=== PATIENT | male | born 1980 | race Caucasian/White ===

== ENCOUNTER 2024-01-18 13:41 | Emergency (ER) | payer MEDICARE, OTHER, SELFPAY ==
[2024-01-18] VITALS (22 sets, daily range): BP systolic 101–125; BP diastolic 65–88
[2024-01-18 14:11] LABS: % Basophils 0.6 % (0-2); % Eosinophils 3.4 % (0-6); % Immature Granulocytes 0.6 % (0-0.5); % Lymphocytes 25.2 % (20.5-51.1); % Monocytes 9.7 % (1.7-9.3); % Neutrophils 60.5 % (42.2-75.2); Absolute Basophils 0.1 10^3/uL (0-0.2); Absolute Eosinophils 0.3 10^3/uL (0-0.7); Absolute Immature Granulocytes 0.1 10^3/uL (0-0.05); Absolute Lymphocytes 2.1 10^3/uL (1.2-3.4); Absolute Monocytes 0.8 10^3/uL (0.1-0.6); Hematocrit 41.6 % (39.0-52.0); Hemoglobin 13.9 g/dL (13.0-18.0); Mean Corp Hgb Conc. 33.4 g/dL (33.0-37.0); Mean Corpuscular Hgb 31.1 pg (27.0-31.0); Mean Corpuscular Volume 93.1 fL (80.0-94.0); Mean Platelet Volume 11.9 fL (7.4-10.4); Nucleated Red Blood Cells % 0 % (-); Platelet Count 143 10^3/uL (130-400); Red Blood Cell Count 4.47 10^6/uL (4.70-6.10); Red Cell Dist. Width 13.4 % (11.5-14.5); White Blood Cell Count 8.3 10^3/uL (4.8-10.8)
[2024-01-18 14:36] LABS: Troponin I < 0.012 ng/ml
[2024-01-18 15:07] LABS: ALT (SGPT) 11 U/L (0-50); AST (SGOT) 14 U/L (17-59); Albumin 4.4 g/dl (3.5-5.0); Alkaline Phosphatase 49 U/L (38-126); Blood Urea Nitrogen 18 mg/dl (9-20); Carbon Dioxide 27 mmol/L (22-30); Chloride 107 mmol/L (98-107); Glucose 96 mg/dl (70-99); Potassium 4.7 mmol/L (3.5-5.1); Sodium 141 mmol/L (135-145); Total Bilirubin 0.4 mg/dl (0.2-1.3); Total Protein 6.6 g/dl (6.3-8.2); eGFR > 60.00
--- NOTE | 2024-01-18 16:05 | ED.GENMED ---
History of Present Illness
General
Chief Complaint: Heart Rate Problem
Time Seen by Provider: 01/18/24 15:37
History of Present Illness
History of Present Illness:
43-year-old male with history of mechanical aortic valve on Coumadin from endocarditis presenting to the emergency department for concern of atrial flutter. 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 Rodriguez. Patient was seen cardiology for routine
follow-up, found to be in a flutter and sent for cardioversion. Patient without acute complaints, denies chest pain, difficulty breathing, dizziness, lightheadedness, fever. Notes compliance with his medications. Per truck trailer final inspector, therapeutic on
Coumadin. Patient sent in for cardioversion. No additional complaints at this time
Past History
Past History
ED Past Medical History: CHF, Seizures, Valvular disease, Other and Other
ED Past Surgical History: Brain, Cardiac and Orthopedic
Social History
Tobacco: Smoker
Alcohol: None
Drug: Former user and IVDA
Personal: Single
Living: with family
Employment: Disabled
Family History
Family History: CAD
Phy Exam
Physical Exam
Physical Exam:
GENERAL: Alert , in no apparent distress
EYE: pupils equal and reactive
NECK: Supple, no significant adenopathy.
ENT: o/p clr, mmm.
CARDIAC: Tachycardic
LUNGS: Clear breath sounds bilaterally, no acute respiratory distress, no wheezes/rales/rhonchi
ABDOMEN: Soft, without focal tenderness, no r/g, no cvat
NEUROLOGICAL: Alert and oriented, no focal neuro deficits
SKIN: Warm and dry, skin intact.
MUSCULOSKELETAL: No edema, well perfused.
PSYCH: Normal and appropriate interaction.
Course
Orders/Labs/Results
Orders:
Orders
01/18/24 13:54
Electrocardiogram (*1) Urgent
Reason for Study: Chest Pain
EKG- Treatment ONCE
01/18/24 14:02
Complete Blood Count/With Diff Urgent
Comprehensive Metabolic Panel Urgent
Troponin I Urgent
01/18/24 15:53
Electrocardiogram (*1) Urgent
Reason for Study: Tachycardia
EKG- Treatment ONCE
01/18/24 16:51
Prothrombin Time Urgent
01/18/24 17:51
Propofol [Diprivan] 20 ml .ROUTE .STK-MED
01/18/24 18:11
Electrocardiogram (*1) Urgent
Reason for Study: Atrial Flutter
Other Reason for Exam: post cardioversion
01/18/24 18:13
EKG- Treatment ONCE
01/18/24 18:58
Levetiracetam [Keppra] 2,000 mg PO NOW STA
01/18/24 19:27
Warfarin [Coumadin] 8 mg PO NOW STA
Abnormal Lab Results
01/18/24 01/18/24
14:02 16:51
RBC 4.47 L 10^6/uL
(4.70-6.10)
MCH 31.1 H pg
(27.0-31.0)
MPV 11.9 H fL
(7.4-10.4)
Abs Immat Gran (auto) 0.1 H 10^3/uL
(0-0.05)
Absolute Monos (auto) 0.8 H 10^3/uL
(0.1-0.6)
Immature Gran % 0.6 H %
(0-0.5)
Monocytes % 9.7 H %
(1.7-9.3)
PT 27.4 H Sec
(11.4-14.6)
AST 14 L U/L
(17-59)
01/18/24 14:02
01/18/24 14:02
Vital Signs
Initial and Last Documented VS:
Initial Vital Signs
Temp Pulse Resp BP Pulse Ox
97.4 F 126 20 114/88 98
01/18/24 13:51 01/18/24 13:51 01/18/24 13:51 01/18/24 13:51 01/18/24 13:51
Last Documented Vital Signs
Temp Pulse Resp BP Pulse Ox
98.0 F 77 18 111/73 97
01/18/24 18:46 01/18/24 19:00 01/18/24 19:00 01/18/24 19:00 01/18/24 19:00
Procedures
Moderate Sedation
ASA Risk Score: Class II
Chart and allergies reviewed: Yes
Consent for anesthesia obtained: Yes
Time out completed (validating right patient & procedure): Yes
Moderate Sedation Start Time(when first medication is given): 18:06
History of difficult intubation: No
Airway free of obstruction: Yes
Patient has a gag reflex: Yes
Patient is able to open mouth: Yes
Patient has no dentures: Yes
Patient has no loose teeth: Yes
Medication administered by Provider during Moderate Sedation: IV Propofol (mg)
Total dose administered: 100
Time drug administered: 18:06
Moderate Sedation Procedure End Time: 18:20
Cardioversion
Indication:: Other (atrial flutter)
Performed by:: Hayley Recinos DO
Synchronized?: Yes
Energy Used: 200 joules
Number of attempts: 1
Successful?: Yes
Complications: none
ASA Risk Score: Class II
Any reaction or bad outcome to prior sedation/anesthesia?: No history of a reaction
Sedation level to be attained: moderate
Chart and allergies reviewed: Yes
Patient reassessed prior to sedation: Yes
Time out completed at (validating right patient & procedure): 18:00
History of difficult intubation: No
Airway free of obstruction: Yes
Patient has a gag reflex: Yes
Patient is able to open mouth: Yes
Patient has no dentures: Yes
Patient has no loose teeth: Yes
Medication administered by Provider during Moderate Sedation: IV Propofol (mg)
Total dose administered: 100
Time drug administered: 18:06
Start Time: 18:06
Stop Time: 18:20
MDM/Problems Addressed
MDM/Problems Addressed:
43-year-old male with history of mechanical aortic valve on Coumadin presenting for concern of new onset a flutter. Vital signs significant for tachycardia.
On exam, patient well-appearing, asymptomatic. Patient sent in by cardiology for cardioversion. Did discuss with cardiology, will cardiovert in the emergency department. Pending INR. Patient is also to health monitor placed on by cardiology
prior to discharge.
18:15 -successful cardioversion to sinus rhythm. Will appropriately monitor until clinically stable for ambulation. Plan for discharge home with outpatient cardiology follow-up. Monitor has been placed on patient by cardiology.
*EKG
Interpreted by ED Provider?: Yes
EKG Intrepretation Date: 01/18/24
EKG Intrepretation Time: 17:15
Interpretation: abnormal
Comparison EKG: changes noted
Heart Rate: 120
Rate: tachycardiac
Rhythm: atrial flutter
Vanderbilt: normal axis
Interval: normal interval
QRS Pattern: normal QRS
Ischemia: no ischemia
*Critical Care Note
Total Time (30-74mins, 75-104mins- exclusive of procedures): 40
comment:
Critical care statement: A total of 40 minutes of critical care time was provided for this patient. This includes management of unstable vital signs, evaluation of the patient at bedside, reviewing the patient's pertinent medical records, discussion
with consultants, review of old EKGs and review of pertinent medical records. This time with separate from time utilized to perform the aforementioned documented procedures
ED Attending Note
-
Portions of this chart may have been created with voice recognition software.� Occasional wrong word or��sound alike� substitutions may have occurred due to the inherent limitations of voice recognition software.
Discharge Plan
Departure
Patient Disposition: Home (Routine Discharge)
Date of Disposition: 01/18/24
Time of Disposition: 19:00
Patient with high blood pressure during this ER visit?: No
Condition: Good
Discharge Problem:
Atrial flutter, Encounter for cardioversion procedure
Instructions: Cardioversion (DC), Atrial Flutter (DC), MODERATE SEDATION ADULT
Prescriptions:
No Action
metoprolol tartrate 25 MG tablet
25 mg PO Q12H
lamotrigine 200 mg Tablet
200 mg PO BID
warfarin 7.5 mg Tablet
7.5 mg PO QPM
Rx Instructions:
01/18/2024, take with 0.5 mg for a total of 8 mg.
warfarin 1 mg Tablet
0.5 mg PO QPM
Rx Instructions:
01/18/2024, take with 7.5 mg for a total of 8 mg.
levetiracetam 750 mg Tablet Extended Release 24 Hr
3,000 mg PO QPM
Nurtec ODT 75 mg Tablet,Disintegrating
75 mg PO DAILYPRN PRN (Reason: migraines)
divalproex 500 MG tablet extended release 24 hr
2,000 mg PO DAILY@2100
Referrals:
Antony Rodriguez MD [Active] -
UNKNOWN - PT DOES,NOT KNOW [Family Provider] -
Activity Restrictions/Additional Instructions:
Please follow-up with your truck trailer final inspector within the week. Return to the emergency department any development of chest pain, difficulty breathing, headache or visual changes, weakness or numbness or tingling to extremities, feeling like you are going
to pass out, development of fever, lightheadedness or dizziness
Interventions
Interventions:
*Risk Screen - Suicide Last Done: 01/18/24 13:51
*General Assessment Last Done: 01/18/24 13:51
*Neglect/Abuse Screening Last Done: 01/18/24 13:51
ED- Fall Risk Assessment Last Done: 01/18/24 15:50
*Nursing Disposition Last Done: 01/18/24 19:53
ED- Cardiac Assessment Last Done: 01/18/24 15:50
ED- Pulmonary Assessment Last Done: 01/18/24 15:50
Discharge Date and Time
Discharge Date/Time: 01/18/24 19:58
Print Language: [place]
[2024-01-18 17:16] LABS: INR 2.55; PT 27.4 Sec (11.4-14.6)
[2024-01-18] MEDS: KEPPRA 2000 MG PO (19:41)
[2024-01-18] MEDS: COUMADIN 8 MG PO (19:41)
== END 2024-01-18 19:58 | disposition home or self-care (01) ==
LOC: EMR 13:41
PROVIDERS: Emergency Medicine; EMERGENCY PHYSICIAN Student in an Organized Health Care Education/Training Program
DX: I48.92 Unspecified atrial flutter (principal); I38 Endocarditis, valve unspecified; I50.9 Heart failure, unspecified; R56.9 Unspecified convulsions; F17.200 Nicotine dependence, unspecified, uncomplicated; Z95.2 Presence of prosthetic heart valve; Z79.01 Long term (current) use of anticoagulants
CPT/HCPCS: 99291; 92960; 99152; 80053; 84484; 85025; 85610; 93005

== ENCOUNTER → 2024-02-23 09:55 | Outpatient (REF) | payer MEDICARE, SELFPAY ==
[2024-02-23 12:29] LABS: INR 2.84; PT 29.8 Sec (11.4-14.6)
== END ==
LOC: RCS 09:55
PROVIDERS: ATTENDING PHYSICIAN Internal Medicine Cardiovascular Disease
DX: Z86.79 Personal history of other diseases of the circulatory system (principal); I36.1 Nonrheumatic tricuspid (valve) insufficiency; Z95.2 Presence of prosthetic heart valve; Z79.01 Long term (current) use of anticoagulants
CPT/HCPCS: 36415; 85610; 93306